=== PATIENT | male | born 1955 | race Caucasian/White ===

== ENCOUNTER → 2017-07-28 | Outpatient (CLI) | payer BC ==
--- NOTE | 2017-07-28 08:24 | RAD ---
2 view CXR: Clinical indications: Cough more than 48 hours.. Findings: No acute lung infiltrate or pleural effusion or pulmonary edema or lung mass or pneumothorax is seen. The heart size, pulmonary vasculature, mediastinum and both oliver are unremarkable. The osseous structures appear intact. Impression: No acute radiographic abnormality is seen.
== END | disposition home or self-care (01) ==
LOC: PMG 07:33
PROVIDERS: ATTEND Physician Assistant Medical
DX: R05 Cough (principal)
CPT/HCPCS: 71046

== ENCOUNTER 2017-07-29 02:30 | Emergency (ER) | payer BC ==
[~2017-07-29] VITALS: Ht 182.9 cm; Wt 77.1 kg
--- NOTE | 2017-07-29 03:00 | PHYS DOC ---
General Chief Complaint: allergic reaction Stated Complaint: DIFFICULTY BREATHING Time Seen by MD: 02:43 Source: patient, family Exam Limitations: no limitations Problems: History of Present Illness Initial Comments 61-year-old male comes in the ED private auto complaining of possible allergic reaction. Patient states that he had influenza last week and finished Tamiflu 4 days ago. He saw his PCP yesterday complaining of cough, was prescribed prednisone and a Z -Wild and a chest x-ray was performed (I have attached the report to the chart below). Patient went to bed at 9 PM, states that he was awakened at 2 AM with a feeling that his throat was very dry and scratchy feeling as if it was swollen shut and he was having trouble catching his breath. He began to panic he was hyperventilating and developed bilateral finger numbness and tingling which resolved prior to arrival. Symptoms were described as severe and his decided to bring him in for evaluation. On arrival patient states that he still feels a sensation of scratchiness or a lump in throat, his mouth is very dry and he feels as if he may be dehydrated. He is a longer having any breathing difficulties he does not have any rash and other than the throat sensation he cannot isolate any specific soft tissue swelling. He is very anxious about the symptoms but does deny chest pain nausea diaphoresis fever chills or myalgias. Vital signs are stable. PATIENT: NELL DEL CASTILLO ACCOUNT: [id number] : 1955 [place] [facility] [place]GE[place] 61 SEX: M EXAM STATUS: REG CLI ORD. PHYSICIAN: MARTINE LINN REASON: COUGH PROCEDURE: CHEST PA & LATERAL 2 view CXR: Clinical indications: Cough more than 48 hours.. Findings: No acute lung infiltrate or pleural effusion or pulmonary edema or lung mass or pneumothorax is seen. The heart size, pulmonary vasculature, mediastinum and both oliver are unremarkable. The osseous structures appear intact. Impression: No acute radiographic abnormality is seen. DICTATED AND SIGNED BY: JANET FULTON MD DATE: 07/28/17 0821 CC: MARTINE LINN ~ Timing/Duration: 1 hour Severity: severe Modifying Factors: worse with medication Associated Symptoms: cough, shortness of breath, other Allergies: Coded Allergies: No Known Drug Allergies (Unverified , 07/29/17) Past Medical History Medical History: hypertension Surgical History: no surgical history Social History Smoker: non-smoker Alcohol: none Drugs: none Review of Systems Constitutional: denies chills, denies diaphoresis, denies fever, denies malaise EENTM: see HPI Respiratory: see HPI Cardiovascular: denies chest pain, denies palpitations, denies syncope Gastrointestinal: denies diarrhea, denies nausea, denies vomiting Musculoskeletal: denies back pain, denies joint swelling, denies neck pain Psychiatric/Neurological: denies headache, denies numbness, denies paresthesia Hematologic/Lymphatic: denies blood clots, denies easy bleeding, denies easy bruising Physical Exam General Appearance: WD/WN, mild distress (very anxious) Eyes: bilateral eye normal inspection, bilateral eye PERRL, bilateral eye EOMI Ear, Nose, Throat: hearing grossly normal, normal ENT inspection, normal pharynx Neck: non-tender, supple Respiratory: normal breath sounds, no respiratory distress Cardiovascular: normal peripheral pulses, regular rate, rhythm Extremities: non-tender, normal inspection Neurologic/Psychiatric: 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 0413: Patient rechecked, he states that the scratchy sensation in his throat has resolved. He is feeling much better with IV hydration and somewhat sedated from the Benadryl. He and his spouse are requesting discharge home. Departure Time of Disposition: 04:13 Disposition: 01 HOME, SELF-CARE Diagnosis: possible allergic reaction, dehydration Condition: IMPROVED Patient Instructions: Dehydration, Adult, Nidv-lc-[id number], Drug Allergy, Easy-to- Read Additional Instructions: Discontinue Zithromax for now. Kpsj-lgn-[id number] Pepcid 20 mg twice daily, Benadryl 25 mg every 6 hours while taking prednisone. Continue prednisone. Aggressive hydration with Gatorade and water. Follow-up with your doctor today or tomorrow for recheck and to discuss Zithromax, possible allergy testing. Return to ED with new or changing symptoms. GEOVANNI PAGE DO Jul 29, 2017 03:00
[2017-07-29 03:30] VITALS: BP 129/70
[2017-07-29] MEDS ORDERED: IV NORMAL SALINE 1,000ML 1,000 ML IV SCH (03:30)
[2017-07-29] MEDS ORDERED: FAMOTIDINE 20 MG/2 ML VIAL IVP ONE (03:30)
[2017-07-29] MEDS ORDERED: methylPREDNISolone SOD SUCC PF 125 MG/2 ML VIAL. IV ONE (03:30)
[2017-07-29] MEDS ORDERED: diphenhydrAMINE 50 MG/ML VIAL IV ONE (03:30)
== END 2017-07-29 04:25 | disposition home or self-care (01) ==
LOC: ER 02:30
DX: E86.0 Dehydration (principal); R05 Cough; I10 Essential (primary) hypertension
CPT/HCPCS: 96361; 96374; 96375; 99284; J1200; J2930; S0028; J7030

== ENCOUNTER 2020-01-15 06:50 | Emergency (ER) | payer MEDICARE, OTHER ==
[~2020-01-15] VITALS: Ht 182.9 cm; Wt 81.4 kg
--- NOTE | 2020-01-15 07:11 | PHYS DOC ---
Past History Past Medical History: Hypertension Past Surgical History: No Surgical History Alcohol Use: None Drug Use: None General Adult EDM: Chief Complaint: URINARY RETENTION HPI: HPI: 64-year-old male presents with urinary retention. The patient was able to urinate without difficulty last night around 10 PM. When he woke up this morning he felt like he really need to urinate, but had very little output. He continues to feel very full. He had an episode similar to this 6 or 7 years ago. He had a straight cath and everything was back to normal at that time. He does take medication for enlarged prostate. He has been taking this. Patient admits that he is also been taking an [id number] antihistamine lately for seasonal allergy symptoms. Patient denies fever or chills. He has no other complaints at this time. Review of Systems: Review of Systems: Constitutional: Denies fever or chills Eyes: Denies change in visual acuity HENT: Denies nasal congestion or sore throat Respiratory: Denies cough or shortness of breath Cardiovascular: Denies chest pain or edema GI: Suprapubic abdominal pain. Denies nausea, vomiting, bloody stools or diarrhea : Urinary retention Musculoskeletal: Denies back pain or joint pain Integument: Denies rash Neurologic: Denies headache, focal weakness or sensory changes Endocrine: Denies polyuria or polydipsia Lymphatic: Denies swollen glands Psychiatric: Denies depression or anxiety Heart Score: Risk Factors: Risk Factors: DM, Current or recent (<one month) smoker, HTN, HLP, family history of CAD, obesity. Risk Scores: Score 0 - 3: 2.5% MACE over next 6 weeks - Discharge Home Score 4 - 6: 20.3% MACE over next 6 weeks - Admit for Clinical Observation Score 7 - 10: 72.7% MACE over next 6 weeks - Early Invasive Strategies Allergies: Allergies: Allergies Coded Allergies Type Severity Reaction Last Updated Verified No Known Drug Allergies 07/29/17 No Physical Exam: PE: Constitutional: Well developed, well nourished, no acute distress, non-toxic appearance. [] HENT: Normocephalic, atraumatic, bilateral external ears normal, oropharynx moist, no oral exudates, nose normal. [] Eyes: PERRLA, EOMI, conjunctiva normal, no discharge. [] Neck: Normal range of motion, no tenderness, supple, no stridor. [] Cardiovascular:Heart rate regular rhythm, no murmur [] Lungs & Thorax: Bilateral breath sounds clear to auscultation [] Abdomen: Bowel sounds normal, soft, tenderness and firmness over the suprapubic area. [] Skin: Warm, dry, no erythema, no rash. [] Back: No tenderness, no CVA tenderness. [] Extremities: No tenderness, no cyanosis, no clubbing, ROM intact, no edema. [] Neurologic: Alert and oriented X 3, normal motor function, normal sensory function, no focal deficits noted. [] Psychologic: Affect normal, judgement normal, mood normal. [] Current Patient Data: Vital Signs: Vital Signs Date Time Temp Pulse Resp B/P (MAP) Pulse Ox O2 Delivery O2 Flow Rate FiO2 01/15/20 06:50 97.6 80 16 159/98 (118) 98 Room Air EKG: EKG: [] Radiology/Procedures: Radiology/Procedures: [] Course & Med Decision Making: Course & Med Decision Making Pertinent Labs and Imaging studies reviewed. (See chart for details) We placed a Wright catheter in the patient and he had over 800 mL of output. He is feeling much better. Patient's urinalysis is negative for infection. The patient has elected to remove the catheter at this time to see how things go. It is possible that the antihistamine is at least partially to blame. I have advised that he not take it for at least the next 24 hours. He is stable for discharge at this time. [] Dragon Disclaimer: Dragon Disclaimer: This electronic medical record was generated, in whole or in part, using a voice recognition dictation system. Departure Departure: Impression: Primary Impression: Urinary retention Disposition: HOME/RESIDENCE PRIOR TO ADM Condition: IMPROVED Referrals: MARTINE LINN (PCP) Patient Instructions: Urinary Retention, Acute, Male, [id number] Justification of Admission: Justification of Admission: Justification of Admission Dx: N/A ALEXANDRA GE DO Jan 15, 2020 07:11
[2020-01-15 07:51] LABS: BACTERIA,URINE 0 /HPF (0-FEW); BILIRUBIN,URINE NEG (NEG); CLARITY,URINE CLEAR; COLOR,URINE YELLOW; GLUCOSE,URINE NEG (NEG); NITRITE,URINE NEG (NEG); RBC,URINE OCC /HPF (0-2); UROBILINOGEN,URINE 0.2 mg/dL (0.2 mg/dL); WBC,URINE OCC /HPF (0-4)
[2020-01-15 08:00] VITALS: BP 149/81
== END 2020-01-15 08:22 | disposition home or self-care (01) ==
LOC: ER 06:50
DX: R33.9 Retention of urine, unspecified (principal); I10 Essential (primary) hypertension
CPT/HCPCS: 51702; 81001; 99284

== ENCOUNTER → 2021-04-27 | Outpatient (CLI) | payer MEDICARE, OTHER ==
--- NOTE | 2021-04-27 09:49 | RAD ---
EXAM: Left hip pain DATE: 04/27/2021 9:33 AM INDICATION: Reason: LEFT HIP PAIN WITH POSTERIOR ILIAC TENDERNESS, HX OF POSITIVE CHRISS / Spl. Instruct ions: / History: COMPARISON: No prior FINDINGS: AP pelvis exam shows preserved, symmetrical hip joint spaces bilaterally with mild to moderate degene rative changes. SI joints and pubis symphysis preserved with mild generative type changes. Negative a cute or subacute fracture of the pelvis or marginal proximal femurs. Normal bone density; negative fo ekaterina aggressive bony lesion. There is severe degenerative changes of the visualized lumbar spine. IMPRESSION: No acute osseous process of the pelvis and left hip. Electronically signed by: Gray Caceres DO (04/27/2021 9:47 AM) [id number]
== END ==
LOC: PMG 09:19
PROVIDERS: ATTEND Physician Assistant
DX: M16.12 Unilateral primary osteoarthritis, left hip (principal); M46.1 Sacroiliitis, not elsewhere classified; M47.816 Spondylosis without myelopathy or radiculopathy, lumbar region
CPT/HCPCS: 73502

== ENCOUNTER → 2021-08-30 | Outpatient (CLI) | payer MEDICARE, OTHER ==
--- NOTE | 2021-08-30 08:13 | RAD ---
Exam Date: 08/30/2021 8:02 AM XR CHEST 2V Indication: Reason: PERSISTENT CHRONIC COUGH x 2 WEEKS / Spl. Instructions: / History: . Comparison: July 28, 2017 FINDINGS/ IMPRESSION: The cardiac silhouette and pulmonary vasculature are within normal limits. There is no focal consolidation, pleural effusion or pneumothorax. Degenerative changes are seen in the spine. Electronically signed by: Vin Marie MD (08/30/2021 8:10 AM) GABRIEL
== END ==
LOC: PMG 07:50
PROVIDERS: ATTEND Nurse Practitioner Family
DX: R05.9 Cough, unspecified (principal); M47.814 Spondylosis without myelopathy or radiculopathy, thoracic region
CPT/HCPCS: 71046